=== PATIENT | male | born 1955 | race Caucasian/White ===

== ENCOUNTER → 2019-03-11 13:15 | Outpatient (CLI) | payer OTHER, SELFPAY ==
--- NOTE | 2019-03-11 | DI.MRI.S_ITS ---
PROCEDURE: MR FEMUR LT WO CON INDICATIONS: Pain in left thigh. TECHNIQUE: Noncontrast coronal and sagittal T1 spin echo and STIR; axial T1 spin echo and T2 fast spin echo with fat saturation through the left femur. COMPARISON: None. FINDINGS: Image quality: Excellent. Bones: The visualized bone marrow demonstrates normal signal on all sequences. The overlying cortex appears intact. No fractures lines or intra-osseous lesions. Soft tissues: There is mild thickening and intrasubstance T2 hyperintensity involving the left hamstring origin, although technically age-indeterminate Small tubular lesion with fluid/fluid level seen on image 5 series 9 measuring approximately 3 cm. This is seen deep to the rectus femoris, and vastus intermedius muscles for example image 43 series 8. In this region, there is linear fibrotic appearing signal potentially related to remote prior rectus femoris injury. Otherwise, scanned muscles demonstrate normal overall bulk and internal signal. Subcutaneous tissues appear normal as well. IMPRESSION: Mild hamstring origin tendinopathy, technically unknown age. On large field of view pulse sequences, there are similar signal changes involving the right hamstring origin to a lesser extent Indeterminate fluid/fluid level, which may be associated with complex cystic lesion versus venous stasis within the anterior thigh, technically indeterminate. If clinically warranted, a contrast-enhanced study could be performed or focused ultrasound. In this area, there is low signal presumed fibrosis or scarring, potentially related to prior rectus femoris tear/strain. Elsewhere, no definite signal changes to explain posterior thigh muscle strain/tear. Dictated by: Will Wagner M.D. on 03/11/2019 at 15:27 Approved by: Will Wagner M.D. on 03/11/2019 at 15:48
== END ==
PROVIDERS: PCP Student in an Organized Health Care Education/Training Program; Visit Provider Student in an Organized Health Care Education/Training Program
DX: M79.652 Pain in left thigh (principal); M67.952 Unspecified disorder of synovium and tendon, left thigh
CPT/HCPCS: 73718

== ENCOUNTER → 2019-03-24 07:25 | Outpatient (CLI) | payer OTHER, SELFPAY ==
--- NOTE | 2019-03-24 | DI.MRI.S_ITS ---
PROCEDURE: MR LOWER LEG LT W CON INDICATIONS: Left thigh mass TECHNIQUE: After the administration of contrast, axial/sagittal/coronal T1 spin echo with fat saturation through the left thigh. COMPARISON: [facility], MR, MR FEMUR LT WO CON, 03/11/2019, 13:22. FINDINGS: Image quality: Excellent. Bones: The visualized bone marrow demonstrates normal signal on all sequences. The overlying cortex appears intact. No abnormal intraosseous enhancement. Soft tissues: Previous MR finding of a small tubular lesion with fluid fluid level seen in the anterior right upper thigh soft tissue and is deep to the rectus femoris and vastus intermedius muscle is again seen and showed no abnormal contrast enhancement within this structure. This area measures approximately 1.3 x 0.5 x 10.5 cm in its largest transverse, AP and craniocaudal dimensions. No adjacent muscle or tendon signal abnormality. No other fluid collection or soft tissue mass is seen. No area of abnormal enhancement. The scanned muscles demonstrate normal overall bulk and internal signal. No abnormal soft tissue enhancement. IMPRESSION: 1. 1.3 x 0.5 x 10.5 cm tubular fluid signal structure in deep soft tissue of anterior mid thigh as above, and show no contrast enhancement and likely represent benign process such as venous stasis. 2. No area of abnormal contrast enhancement is seen in the left thigh and left femur. Dictated by: Jovanni Wilson M.D. on 03/24/2019 at 8:56 Approved by: Jovanni Wilson M.D. on 03/24/2019 at 9:53
== END ==
PROVIDERS: PCP Student in an Organized Health Care Education/Training Program; Visit Provider Student in an Organized Health Care Education/Training Program
DX: R22.42 Localized swelling, mass and lump, left lower limb (principal)
CPT/HCPCS: 73719

== ENCOUNTER → 2021-01-09 15:25 | Outpatient (CLI) | payer OTHER, SELFPAY ==
[2021-01-09 15:53] LABS: COVID19 -Nasal RAPID Negative (Negative)
== END ==
PROVIDERS: PCP Student in an Organized Health Care Education/Training Program; Visit Provider Surgery
DX: Z01.812 Encounter for preprocedural laboratory examination (principal); Z20.822 Contact with and (suspected) exposure to COVID-19
CPT/HCPCS: 87635; C9803

== ENCOUNTER → 2021-01-11 06:18 | Day surgery (SDC) | payer OTHER, SELFPAY ==
--- NOTE | 2021-01-11 | PATH_ITS ---
[facility] Accession Number: [id number] . 01 Material submitted: . colon - POLYPECTOMY ASCENDING COLON . 02 Diagnosis: Ascending Colon Polyp, Polypectomy: Tubular adenoma. Spirochetosis; please see comment. MRV 01/15/2021 1509 Local . 02 Comment: Colonic spirochetosis is an unusual condition in which numerous spirochete bacteria carpet the surface epithelium. It has been associated with abdominal pain, diarrhea, rectal bleeding and immunosuppression in some cases. That said, it is often reported as an incidental finding with no clear clinical correlates. . 02 Electronically signed: . Stahya Duran MD, PhD, Pathologist NPI- [id number] . 01 Gross description: . POLYPECTOMY ASCENDING COLON: Received in formalin is 1 fragment(s) of ferrell, soft tissue measuring 0.7 x 0.3 x 0.3 cm submitted entirely in 1 cassette(s) /DAYDAY 01/12/2021 0238 Local . 02 Pathologist provided ICD-10: D12.2, A69.9 . 02 CPT . 322658 Performed at: 01 [facility] [address], [place], [place] [id number] MD Shaka Sanchez MD Phone: [phone] Performed at: 02 [facility] [address] [place], [place] [id number] MD Claire Hinson MD Phone: [phone]
[2021-01-11 07:05] VITALS: BP 167/93; PULSE 80; RESP 16; TEMP 37.1; O2SAT 97; BMI 32.3
--- NOTE | 2021-01-11 07:52 | P.HP_ITS ---
History of Present Illness History of Present Illness Date Patient Seen: 01/11/21 Time Patient Seen: 07:52 Chief complaint: SDC Narrative: colon cancer screening. Last scope 10 years, no family history Patient History Surgical History Hx of umbilical hernia repair Family & Social History Family History Father Diabetes mellitus Social History: household members spouse Tobacco & Substance use: Smoking Status Never smoker alcohol intake never Substance Use Type does not use Meds Home Medications and Allergies Home Medications Medication Instructions Recorded Confirmed Type cholecalciferol (vitamin D3) 125 5,000 unit PO DAILY 04/01/19 04/01/19 History mcg (5,000 unit) capsule omega-3 fatty acids 1,000 mg 1,000 mg PO DAILY 04/01/19 04/01/19 History capsule (Fish Oil Concentrate) vitamin B comp and C no.3 15 mg-10 1 cap PO DAILY 04/01/19 04/01/19 History mg-50 mg-5 mg-300 mg capsule (B Complex Plus Vitamin C) sodium,potassium,mag sulfates 17.5 See Rx Instructions PO .COMPLEX 11/20/20 Rx gram-3.13 gram-1.6 gram oral soln #354 ml (Suprep Bowel Prep Kit) Allergies Allergy/AdvReac Type Severity Reaction Status Date / Time No Known Drug Allergies Allergy Verified 01/11/21 07:05 Exam Vital Signs (past 8 hours): - 01/11/21 07:05 Temperature 98.7 F Pulse Rate 80 Respiratory Rate 16 Blood Pressure 167/93 H Pulse Oximetry 97 Oxygen Delivery Method Room Air Const General: cooperative and healthy appearing Nutritional Appearance: average body habitus [facility] Head: normocephalic and atraumatic Eyes General: appearance normal, both eyes and all related structures Neck Neck: trachea midline Resp Effort & Inspection: normal respiratory effort and able to speak in complete sentences Cardio Rate: regular rate Rhythm: regular rhythm GI Inspection: normal to inspection Skin General: no rashes or lesions noted and elasticity normal Neuro General: patient alert and patient oriented x3 Cognition: normal cognition Extrem General: normal to inspection Psych Appearance: grossly normal Assessment & Plan Assessment & Plan narrative: Colon cancer screening with colonoscopy and moderate sedation COVID-19 COVID-19 status: Negative Time Spent With Patient Critical Care time: I spent a total of [] minutes of critical care time on this patient's care today; this time is exclusive of procedural time.
[2021-01-11] MEDS: fentaNYL 250 MCG/5 ML INJ IV (08:01)
[2021-01-11] MEDS: MIDAZOLAM 5 MG/5 ML VIAL IV (08:01)
--- NOTE | 2021-01-11 08:12 | PM.OP.ENDO ---
Operative Date/Time/Diagnoses Date of procedure: 01/11/21 Time of procedure: 08:12 Pre-op diagnosis: colon cancer screening Post-op diagnosis: same Procedure & Clinicians Study performed: Colonoscopy with moderate sedation Same procedure as scheduled: Yes Indications: Colon cancer screening Surgeon: Rocio Nieto Procedure Notes SCOAP/Timeout: Done Procedure in detail: Preop diagnosis: Colon cancer screening Postop diagnosis: Same Operative procedure: Colonoscopy with moderate sedation and the cold forceps polypectomy Surgeon: Katlyn Nieto MD Anesthetic: 8 mg Versed 125 micro g fentanyl Findings: Small 2 mm polyp in the distal ascending colon taken with cold forceps Procedure: Patient placed in lateral position. Rectal exam performed showing normal tone no masses. Colonoscope inserted into the rectum and advanced to the ileocecal valve with minimal difficulty. Insufflation instruction of scalp including retroflex the rectum had the above findings. Impression: No diverticulosis. Excellent bowel prep. Small 2 mm polyp in the distal ascending colon Plan: Await pathology to determine recall. Sedation minutes: 17 Findings: polyp
[2021-01-11 08:14] VITALS: BP 131/86; PULSE 78; RESP 14; TEMP 36.8; O2SAT 94
[2021-01-11 08:21] VITALS: BP 139/91; PULSE 68; RESP 14; TEMP 36.8; O2SAT 93
[2021-01-11 08:30] VITALS: BP 120/84; PULSE 76; RESP 14; O2SAT 94
== END | disposition home or self-care (01) ==
PROVIDERS: PCP Student in an Organized Health Care Education/Training Program; Referring Provider Surgery; Visit Provider Surgery
PROC: 0DJD8ZZ Inspection of Lower Intestinal Tract, Via Natural or Artificial Opening Endoscopic (ICD-10-PCS; CPT 45378; principal; 2021-01-11 07:45)
DX: Z12.11 Encounter for screening for malignant neoplasm of colon (principal); D12.2 Benign neoplasm of ascending colon; A69.9 Spirochetal infection, unspecified
CPT/HCPCS: 45380; J2250; J3010